=== PATIENT | male | born 1970 | race Caucasian/White ===

== ENCOUNTER → 2021-04-02 14:04 | Outpatient (REF) | payer OTHER, SELFPAY | LOC: ANHLAB 14:04 | PROVIDERS: PCP Family Medicine; Visit Provider Nurse Practitioner | DX: D49.2 Neoplasm of unspecified behavior of bone, soft tissue, and skin (principal) | CPT/HCPCS: 88305 ==

== ENCOUNTER 2023-09-22 08:00 | Outpatient (NON) | payer OTHER, SELFPAY | END 2023-09-22 08:01 | disposition home or self-care (01) | LOC: ANHLAB 09-23 14:24 | PROVIDERS: PCP Emergency Medicine; Visit Provider Nurse Practitioner | DX: D23.0 Other benign neoplasm of skin of lip (principal) | CPT/HCPCS: 88305 ==